=== PATIENT | male | born 1960 | race Caucasian/White ===

== ENCOUNTER 2020-07-20 19:04 | Emergency (ER) | payer OTHER ==
[2020-07-20] MEDS ORDERED: ELIQUIS 5 MG TAB5 MG PO (20:39)
== END 2020-07-20 21:00 | disposition home or self-care (01) ==
LOC: EDBD 19:04 → ER1 19:04
DX: I80.8 Phlebitis and thrombophlebitis of other sites (principal); J45.909 Unspecified asthma, uncomplicated; Z86.711 Personal history of pulmonary embolism; Z88.0 Allergy status to penicillin
CPT/HCPCS: 99283

== ENCOUNTER → 2020-07-21 | Outpatient (CLI) | payer OTHER ==
[~2020-07-21] MED LIST: ELIQUIS 5 MG TAB5 MG PO
== END ==
LOC: KOH-I 15:00 → EDBD 15:19
DX: M79.662 Pain in left lower leg (principal)
CPT/HCPCS: 93971